=== PATIENT | male | born 1940 | race Caucasian/White ===

== ENCOUNTER → 2019-02-14 | Outpatient (CLI) | payer MEDICARE, OTHER ==
[~2019-02-14] MED LIST: ATOR10TA60 PO; AZIT250T6 PO; FLUT16SP NS; KETO15CR2 TP; MULT-246 PO; NAPR-514 PO; TAMS0.4C97 PO; TEST100V IM
--- NOTE | 2019-02-14 16:46 | KCIC ---
Supine abdomen. HISTORY: Left lower flank pain, history kidney stones Supine views were taken of the abdomen. There is degenerative and hypertrophic change in lumbar spine with evidence of prior lower lumbar fusion. There is mild stool in the colon. There is no small bowel obstruction. There are probable calculi at the lower pole of the right kidney. There is possible right upper renal calculus as well. A ureteral calculus is not definitely identified. There is mild vascular calcification. IMPRESSION: 1. No bowel obstruction or acute finding in the abdomen. 2. Probable right intrarenal calculi. Electronically signed by: Carlos Nj MD (02/14/2019 4:43 PM) [id number]
== END | disposition home or self-care (01) ==
LOC: KCIC 15:00
PROVIDERS: ATTEND Urology
DX: M47.816 Spondylosis without myelopathy or radiculopathy, lumbar region (principal); R10.30 Lower abdominal pain, unspecified; M43.26 Fusion of spine, lumbar region; Z87.442 Personal history of urinary calculi
CPT/HCPCS: 74018